=== PATIENT | male | born 1995 | race Caucasian/White ===

== ENCOUNTER 2017-02-23 07:55 | Day surgery (SDC) | payer OTHER ==
[2017-02-22 11:39] LABS: CARBON DIOXIDE 31.8 mmol/L (21-32); CHLORIDE SERUM 103 mmol/L (98-107); CREATININE SERUM 1.2 mg/dL (0.7-1.3); GFR1 > 60 mL/min; GLUCOSE SERUM 127 mg/dL (74-106); POTASSIUM SERUM 3.7 mmol/L (3.5-5.1); SODIUM SERUM 141 mmol/L (136-145)
[2017-02-22 11:51] LABS: BASOPHIL % 0.6 % (0-2); PLATELET COUNT 196 x10^3mcL (130-400); RED CELL DISTRIBUTION WIDTH 13.1 % (11.5-14.5)
[~2017-02-23] VITALS: Ht 165.1 cm; Wt 59.0 kg
[2017-02-23 08:07] VITALS: BP 129/79
[2017-02-23 13:14] VITALS: BP 116/99
== END 2017-02-23 13:35 | disposition home or self-care (01) ==
LOC: DS 07:55 → OR 09:30 → DS 09:30
PROVIDERS: Neuromusculoskeletal Medicine, Sports Medicine
PROC: 0PBJ0ZZ Excision of Left Radius, Open Approach (ICD-10-PCS; 2017-02-23)
PROC: 0PPJ04Z Removal of Internal Fixation Device from Left Radius, Open Approach (ICD-10-PCS; principal; 2017-02-23 09:30)
DX: Z47.2 Encounter for removal of internal fixation device (principal); S52.515 Nondisplaced fracture of left radial styloid process; X58.XXXD Exposure to other specified factors, subsequent encounter
CPT/HCPCS: 76001; J0690; J1170; J2175; J2250; J2405; J2704; J3010; J3490; J7120